=== PATIENT | female | born 1945 | race Caucasian/White ===

== ENCOUNTER → 2016-10-20 | Outpatient (CLI) | payer MEDICARE, OTHER ==
--- NOTE | 2016-10-20 19:41 | Diagnostic Imaging Report ---
EXAMINATION: Bilateral breast ultrasound. INDICATION: Fibrocystic change. Lumpiness in the breasts. FINDINGS: The four quadrants and retroareolar region were scanned, bilaterally, with no underlying lesion seen. IMPRESSION: Negative study. Clinical followup of the palpable area recommended. ACR BI-RADS Category 1: Negative. Result letter will be mailed to the patient. Note: At least 10% of breast cancer is not imaged by mammography. Dictated by: Dictated on workstation # [id number]
--- NOTE | 2016-10-20 19:42 | Diagnostic Imaging Report ---
INDICATION: Bilateral diagnostic mammogram with tomography. The current study was also evaluated with a Computer Aided Detection (CAD) system. COMPARISON: 02/27/15. FINDINGS: The breasts are composed of heterogeneously dense parenchyma which may decrease mammographic sensitivity. There are benign-appearing calcifications seen. There is no definite underlying mass, architectural distortion or suspicious calcification. Benign-appearing calcifications are seen. IMPRESSION: Dense breast parenchyma with no definitive underlying lesion. Ultrasound evaluation pending. ACR BI-RADS Category 0: Incomplete. (Needs additional imaging evaluation). Result letter will be mailed to the patient. Note: At least 10% of breast cancer is not imaged by mammography. Dictated by: Dictated on workstation # [id number]
== END ==
LOC: RAD 08:04
DX: N60.19 Diffuse cystic mastopathy of unspecified breast (principal)
CPT/HCPCS: 77066

== ENCOUNTER 2017-12-14 09:46 | Outpatient (RCR) | payer MEDICARE, OTHER | END 2017-12-20 10:28 | disposition home or self-care (01) | PROVIDERS: ATTEND Internal Medicine | DX: M54.16 Radiculopathy, lumbar region (principal) ==

== ENCOUNTER 2018-01-22 10:00 | Outpatient (RCR) | payer MEDICARE, OTHER | END 2018-02-19 11:40 | disposition home or self-care (01) | PROVIDERS: ATTEND Internal Medicine | DX: M54.16 Radiculopathy, lumbar region (principal) ==

== ENCOUNTER 2018-06-06 11:46 | Outpatient (CLI) | payer MEDICARE, OTHER | END 2018-06-06 12:15 | disposition home or self-care (01) | LOC: SLEEP 11:46 | PROVIDERS: ATTEND Nurse Practitioner Family | DX: G47.10 Hypersomnia, unspecified (principal); J30.2 Other seasonal allergic rhinitis ==

== ENCOUNTER 2018-07-15 13:29 | Emergency (ER) | payer MEDICARE, OTHER ==
[~2018-07-15] VITALS: Ht 160 cm; Wt 60.8 kg
--- NOTE | 2018-07-15 14:30 | ED EENT ---
History of Present Illness General Chief Complaint: Eye Problems Stated Complaint: BLURRED VISION Source: patient Exam Limitations: no limitations History of Present Illness Date Seen by Provider: Jul 15, 2018 Time Seen by Provider: 14:00 Initial Comments 73-year-old female who presents to the emergency room with complaints of blurred vision in the left eye and seeing black spots out of her left eye. She denies pain or recent trauma to the left eye. Reports symptoms started yesterday. Timing/Duration: yesterday Location: eye (L) Prearrival Treatment: no prearrival treatment Associated Symptoms: denies symptoms Allergies and Home Medications Patient Home Medication List Home Medication List Reviewed: Yes Review of Systems Review of Systems Constitutional: see HPI; No chills, No fever Eyes: See HPI, Blurred Vision, Vision Changes All Other Systems Reviewed Negative Unless Noted: Yes Past Frkhqsr-Imfqvz-Uhqlwr Hx Past Med/Social Hx: Reviewed Nursing Past Med/Soc Hx Patient Social History Recent Foreign Travel: No Contact w/Someone Who Travel: No Recent Hopitalizations: No Seasonal Allergies Seasonal Allergies: No Past Medical History Surgeries: Yes Cardiac, Coronary Stent Respiratory: No Cardiac: Yes Hypertension Neurological: No Genitourinary: No Gastrointestinal: Yes (RECTAL FISSURE) Musculoskeletal: No Endocrine: No HEENT: No Cancer: No Psychosocial: No Integumentary: No Family Medical History Reviewed Nursing Family Hx Visual Acuity : Eye Location: Bilaterally Vision Acuity Degree: 20/30 Physical Exam Vital Signs Vital Signs - First Documented 07/15/18 13:33 Temp 98.2 Pulse 86 Resp 20 B/P (MAP) 148/84 (105) Pulse Ox 98 O2 Delivery Room Air Height, Weight, BMI Height: '" Weight: lbs. oz. kg; BMI Method: General Appearance: WD/WN, no apparent distress Eyes: bilateral eye normal inspection, bilateral eye PERRL, bilateral eye EOMI Cardiovascular: normal peripheral pulses, regular rate, rhythm, no edema, no gallop, no JVD, no murmur Respiratory: chest non-tender, lungs clear, normal breath sounds, no respiratory distress, no accessory muscle use Neurologic/Psychiatric: alert, normal mood/affect, oriented x 3 Skin: normal color, warm/dry Progress/Results/Core Measures Progress Progress Note : Time: 15:15 Progress Note I have seen and evaluated the patient. I have discussed the case with Dr. Meng at this time and he recommends having the patient come to his office at 1530 for further evaluation. The patient agrees with plan of care, plans for discharge, return precautions were given. Departure Impression Primary Impression: Visual disturbance Additional Impression: possible detached retina Disposition: HOME, SELF-CARE Condition: Stable/Unchanged Departure-Patient Inst. Decision time for Depature: 14:27 Referrals: GIO SCHREIBER MD (PCP/Family) Primary Care Physician Patient Instructions: Detached Retina Add. Discharge Instructions: Go to Dr. Morelos's Office at 3:[address] Meng for further evaluation of your blurred vision. Return back to the emergency room for worsening symptoms or concerns as needed. All discharge instructions reviewed with patient and/or family. Voiced understanding. ROSS CONDE Jul 15, 2018 14:30
[2018-07-15 14:40] VITALS: BP 148/84
== END 2018-07-15 14:46 | disposition home or self-care (01) ==
LOC: ER 13:29 → EDUNIT# 13:29 → ER 14:46
DX: H53.8 Other visual disturbances (principal); I10 Essential (primary) hypertension; Z95.5 Presence of coronary angioplasty implant and graft
CPT/HCPCS: 99282

== ENCOUNTER → 2018-08-31 | Outpatient (CLI) | payer MEDICARE, OTHER ==
--- NOTE | 2018-08-31 12:18 | Diagnostic Imaging Report ---
EXAMINATION: Digital mammogram bilateral screening. The current study was also evaluated with a Computer Aided Detection (CAD) system. 3-D tomosynthesis was also performed and reviewed. INDICATION: Screening. This study was compared to the prior exams of 10/20/2016 and 02/27/2015. At this time, there are no current complaints. FINDINGS: The fibroglandular tissue in both breasts is heterogeneously dense. This does limit the sensitivity of this exam. Overall, there does not appear to have been any significant change when compared to the prior study. No primary or secondary sign of malignancy is noted. 3D tomographic images fail to show any sign of malignancy. IMPRESSION: There is no radiographic evidence for malignancy. ACR BI-RADS Category 1: Negative. Result letter will be mailed to the patient. Note: At least 10% of breast cancer is not imaged by mammography. Dictated by: Dictated on workstation # [id number]
== END ==
LOC: RAD 09:55
PROVIDERS: ATTEND Obstetrics & Gynecology
DX: Z12.31 Encounter for screening mammogram for malignant neoplasm of breast (principal)
CPT/HCPCS: 77067

== ENCOUNTER 2019-05-17 07:12 | Day surgery (SDC) | payer MEDICARE, OTHER ==
[~2019-05-17] VITALS: Ht 160 cm; Wt 62.0 kg
[2019-05-17] VITALS (10 sets, daily range): BP systolic 133–176; BP diastolic 80–100
[~2019-05-17 07:12] MED LIST: HEParin (CATH LAB) 2,000 ML IV ONE; LIDOCAINE 1% INJ 20 ML 20 ML VIAL ONE; NS IV 1000 ML 1,000 ML ONE
[2019-05-17] MEDS ORDERED: NS IV 1000 ML 1,000 ML IV SCH ×2 (07:30→09:02)
[2019-05-17 07:50] LABS: HEMOGLOBIN 12.3 G/DL (11.5-16.0); MEAN PLATELET VOLUME 8.9 FL (7.4-10.4); RED CELL DISTRIBUTION WIDTH 13.5 % (10.0-14.5); WHITE BLOOD COUNT 5.8 10^3/uL (4.3-11.0)
[2019-05-17] MEDS ORDERED: MELO7.5T46 PO (07:54)
[2019-05-17] MEDS ORDERED: THYR30TA2 PO (07:54)
[2019-05-17] MEDS ORDERED: OMEP20CA18 PO (07:54)
[2019-05-17] MEDS ORDERED: ASPI-983 PO (07:54)
[2019-05-17] MEDS ORDERED: MIDAZOLAM 5 MG/5 ML (VERSED) VIAL ONE (07:55)
[2019-05-17] MEDS ORDERED: fentaNYL INJECTION 100 MCG/2 ML AMP ONE (07:55)
[2019-05-17 08:08] LABS: PROTHROMBIN TIME PATIENT 13.3 SEC (12.2-14.7)
[2019-05-17 08:16] LABS: ALANINE AMINOTRANSFERASE 17 U/L (0-55); ALBUMIN 4.7 GM/DL (3.2-4.5); ALKALINE PHOSPHATASE 73 U/L (40-136); BILIRUBIN,TOTAL 0.4 MG/DL (0.1-1.0); BUN/CREATININE RATIO 16; CALCIUM 10.3 MG/DL (8.5-10.1); CARBON DIOXIDE 24 MMOL/L (21-32); CHLORIDE 97 MMOL/L (98-107); CHOLESTEROL 231 MG/DL (< 200); CREATININE SERUM 0.97 MG/DL (0.60-1.30); GFR ESTIMATED 56; GLUCOSE 85 MG/DL (70-105); HDL CHOLESTEROL 73 MG/DL (40-60); POTASSIUM 4.5 MMOL/L (3.6-5.0); SODIUM 132 MMOL/L (135-145); TOTAL PROTEIN 7.7 GM/DL (6.4-8.2); TRIGLYCERIDES 71 MG/DL (<150); VLDL CHOLESTEROL 14 MG/DL (5-40)
[2019-05-17] MEDS ORDERED: ADENOSINE 3 MG/1 ML (ADENOSCAN) 30ML VIAL IV ONE (08:23)
[2019-05-17] MEDS ORDERED: HEParin 1000 UNIT/ML (10ML VIAL) FOR BOLUS ONE (08:23)
--- NOTE | 2019-05-17 09:02 | Cardiac Procedure Note-CS/ASA ---
Pre-Procedure Note Pre-Op Procedure Note H&P Reviewed The H&P was reviewed, patient examined and no changes noted. Date H&P Reviewed: May 17, 2019 Time H&P Reviewed: 08:10 Conscious Sedation Pre-Proced Time 08:10 ASA Score 3 For ASA 3 and 4: Consider anesthesia and medical clearance. Also, for patients with a history of failed moderate sedation consider anesthesia. Airway Lungs Heart ASA score ASA 1: a normal healthy patient ASA 2: a patient with a mild systemic disease (mid diabetes, controlled hypertension, obesity ASA 3: a patient with a severe systemic disease that limits activity (angina, COPD, prior Myocardial infarction) ASA 4: a patient with an incapacitating disease that is a constant threat to life (CHF, renal failure) ASA 5: a moribund patient not expected to survive 24 hrs. (ruptured aneurysm) ASA 6: a declared brain- patient whose organs are being harvested. For emergent operations, add the letter E after the classification Mallampati Classification Grade 2 Sedation Plan Analgesia, Amnesia, Plan communicated to team members, Discussed options with patient/fam, Discussed risks with patient/fam The patient is an appropriate candidate to undergo the planned procedure, sedation, and anesthesia. The patient immediately re-assessed prior to indication. SHAHIDA ADAMS MD FACP FAC CCDS May 17, 2019 09:02
[2019-05-17] MEDS ORDERED: PRAV20TA3 PO (09:05)
--- NOTE | 2019-05-17 09:05 | Discharge Inst-Post CATH ---
Discharge Inst-CATH/EP Post Cardiac Cath/EP D/C Inst Follow Up/Plan F/u with Dr Fan in one month ACTIVITY * Go Home directly and rest. * Limit activity of the leg (or wrist if it was used) for 7 days including aerobics, swimming, jogging, bicycling, etc. * Restrict stair-climbing for 7 days if possible, if not, climb up with your non-cath leg, then bring together on the same step. * Avoid lifting, pushing, pulling or excessive movement of the affected extremity for 7 days. * Customary sexual activity may be resumed after 2 days-use caution not to use a position that strains or causes pain to the affected extremity. * No driving for 24 hours. * NO SMOKING. * Avoid straining for bowel movements for 7 days. * Gentle walking on level ground is allowed. * Returning to work will depend on the type of procedure and the results. Your doctor will discuss this with you. CALL YOUR DOCTOR FOR ANY OF THE FOLLOWING: *If bleeding from the puncture site occurs- Apply gentle pressure to site with clean cloth and call your doctor or EMS. * If a knot or lump forms under the skin, increases in size, or causes pain. * If bruising appears to be worsening or moving further down your leg instead of disappearing. * Temperature above 101 F. CARE OF YOUR GROIN INCISION; * Bruising or purple discoloration of the skin near the puncture site is common. * You may shower only, no bathtub bathing for 5 days. Be careful to avoid slipping as your leg may feel stiff. * If a closure device was used on your femoral artery, please see the attached guide regarding care of the device and your leg. * Leave dressing on FOR 24 hours. CARE OF YOUR WRIST INCISION; * Bruising or purple discoloration of the skin near the puncture site is common. * You may shower. * DO NOT submerge wrist. * Leave dressing on FOR 24 hours. SHAHIDA FAN MD [facility] CCDS May 17, 2019 09:05
--- NOTE | 2019-05-17 09:06 | Discharge Inst-Cardiology ---
Discharge Inst-Cardiac Discharge Medications New Medications: Pravastatin Sodium (Pravastatin Sodium) 20 Mg Tablet 20 MG PO HS, #30 TAB 5 Refills Continued Medications: Aspirin (Aspirin EC) 81 Mg Tablet.dr 81 MG PO DAILY, TAB Meloxicam (Meloxicam) 7.5 Mg Tablet 7.5 MG PO DAILY, TAB Omeprazole (Omeprazole) 20 Mg Capsule.dr 20 MG PO DAILY, CAP Thyroid,Pork (Story Thyroid) 30 Mg Tablet 30 MG PO DAILY, TAB SHAHIDA ADAMS MD FACP FAC CCDS May 17, 2019 09:06
[2019-05-17] MEDS ORDERED: PATIENT MAY USE OWN MEDS, ALL PO SCH (09:15)
--- NOTE | 2019-05-17 10:12 | CARDIAC CATHETERIZATION ---
DATE OF SERVICE: 05/17/2019 CARDIAC CATHETERIZATION The patient is a 73-year-old lady, who has a history of coronary artery disease and coronary stenting consisting of a Promus stent in the mid left anterior descending artery (2.75 x 16 mm), placed by Dr. Rubio in [place], [place] on 07/25/2014. Lately, she has had chest discomfort similar to what she had experienced prior to her coronary stenting. Cardiac catheterization was carried out today after having obtained an informed consent. DESCRIPTION OF PROCEDURE: She was brought to the cardiac catheterization laboratory in a fasting state. Right groin was prepared and draped in the usual sterile fashion. Lidocaine 1% for local anesthesia. Modified Seldinger technique was used to advance a 5-Guamanian sheath in the right femoral artery, 5-Guamanian JL4 catheter for left coronary angiography, 5-Guamanian JR4 catheter for right coronary angiography, 5-Guamanian pigtail catheter was used for left heart catheterization and left ventricular angiography. The pigtail catheter was pulled back and removed. Subsequently, fractional flow reserve measurement was performed in the mid left anterior descending. FRACTIONAL FLOW RESERVE MEASUREMENT IN THE MID LEFT ANTERIOR DESCENDING: We exchanged the sheath over a wire for a 6-Guamanian sheath. We gave 4000 units of intravenous heparin. We used a 6-Guamanian JL4 guide catheter to engage the left coronary artery. We advanced a pressure wire across the mid left anterior descending artery. There was a patent stented segment in the left anterior descending, which was followed by a 40% stenosis. Given the patient's symptoms, we felt that we should make sure that this is not hemodynamically significant. We advanced a wire across the lesion. We gave adenosine 140 mcg per kilogram per minute for 2 minutes and 20 seconds. Fractional flow reserve was measured at 0.89, indicating hemodynamic insignificance. Following completion of this procedure, the wire was removed. We carried out angiography to make sure there is no change in coronary status. The guide catheter was removed. We injected contrast through the sheath. Mynx was used to achieve hemostasis. She tolerated the procedure well. HEMODYNAMICS: Left ventricular end-diastolic pressure following coronary angiography was 4 mmHg. There was no significant pressure gradient on pullback across the aortic valve. Ascending aortic pressure was 127/70 with a mean 84 mmHg. CORONARY ANGIOGRAPHY: Left main coronary artery is free of significant disease. Left anterior descending artery has a widely patent stent in its mid portion that was followed by approximately 40% stenosis and fractional flow reserve across that was 0.89, indicating that this is hemodynamically insignificant. The left circumflex artery does not exhibit significant disease. Right coronary artery is dominant and does not exhibit significant disease. LEFT VENTRICULAR ANGIOGRAPHY: Left ventricular angiography was carried out in the right anterior oblique projection. Global left ventricular systolic function normal. No regional wall motion abnormalities are seen. Left ventricular ejection fraction is 65 to 70%. HEMODYNAMICS: Left ventricular end-diastolic pressure following coronary angiography was 4 mmHg. There was no significant pressure gradient on pullback across the aortic valve. Ascending aortic pressure was 127/70 with a mean 84 mmHg. CONCLUSIONS: 1. Mild coronary artery disease consisting of approximately 40% stenosis in the mid left anterior descending, which is hemodynamically insignificant (by fractional flow reserve measurement). There is a patent stent in the mid left anterior descending that is known to be Promus 2.75 x 15 mm. The rest of the coronaries do not exhibit significant disease. 2. Low normal left ventricular end-diastolic pressure. 3. Normal global left ventricular systolic function with ejection fraction of 65 to 70%. DISCUSSION AND RECOMMENDATIONS: Based on results of the study, chest discomfort does not appear to be of coronary origin. Continuing risk factor modification and conservative management for coronary artery disease appears appropriate. Outpatient followup is advised. Job ID: [id number] DocumentID: [id number] Dictated Date: 05/17/2019 08:58:27 Healthcare Or Medical Date: 05/17/2019 10:12:02 Dictated By: SHAHIDA ADAMS MD, MA, FACP, FACC, MTDD
== END 2019-05-17 13:20 | disposition home or self-care (01) ==
LOC: CATH 07:12 → SDC 09:15 → CATH 13:20
PROVIDERS: ATTEND Internal Medicine Cardiovascular Disease
DX: I25.10 Atherosclerotic heart disease of native coronary artery without angina pectoris (principal); J30.9 Allergic rhinitis, unspecified; G47.10 Hypersomnia, unspecified; G47.33 Obstructive sleep apnea (adult) (pediatric); E78.5 Hyperlipidemia, unspecified; M54.5 Low back pain; G89.29 Other chronic pain; Z88.2 Allergy status to sulfonamides; Z79.82 Long term (current) use of aspirin; Z79.899 Other long term (current) drug therapy; Z82.49 Family history of ischemic heart disease and other diseases of the circulatory system
CPT/HCPCS: 36415; 36430; 80053; 80061; 85027; 85610; 85730; 87081; 93458

== ENCOUNTER → 2020-02-04 | Outpatient (CLI) | payer MEDICARE, OTHER ==
[~2020-02-04] MED LIST changes: +ASPI-1238 PO; -HEParin (CATH LAB) 2,000 ML IV ONE; -LIDOCAINE 1% INJ 20 ML 20 ML VIAL ONE; +MELO7.5T46 PO; -NS IV 1000 ML 1,000 ML ONE; +OMEP20CA18 PO; +PRAV20TA3 PO; +THYR30TA2 PO
--- NOTE | 2020-02-04 13:26 | Diagnostic Imaging Report ---
INDICATION: Routine screening. COMPARISON: 08/31/2018 and 10/20/2016. TECHNIQUE: 2D and 3D bilateral screening mammography was performed with CAD. FINDINGS: Both breasts remain heterogeneously dense, limiting the sensitivity of mammography. The parenchymal pattern is stable. No mass or malignant appearing microcalcifications are seen. The axillae are unremarkable. IMPRESSION: No mammographic features suspicious for malignancy are identified. ACR BI-RADS Category 1: Negative. Result letter will be mailed to the patient. Note: At least 10% of breast cancer is not imaged by mammography. Dictated by: Dictated on workstation # [id number]
== END ==
LOC: RAD 09:34
DX: Z12.31 Encounter for screening mammogram for malignant neoplasm of breast (principal)
CPT/HCPCS: 77063; 77067

== ENCOUNTER → 2020-02-04 | Outpatient (CLI) | payer MEDICARE, OTHER | LOC: CARD 10:00 | PROVIDERS: ATTEND Internal Medicine Cardiovascular Disease | DX: I25.10 Atherosclerotic heart disease of native coronary artery without angina pectoris (principal); I65.23 Occlusion and stenosis of bilateral carotid arteries; I35.8 Other nonrheumatic aortic valve disorders; G47.33 Obstructive sleep apnea (adult) (pediatric) | CPT/HCPCS: 93306 ==

== ENCOUNTER → 2021-11-09 | Outpatient (CLI) | payer MEDICARE, OTHER ==
--- NOTE | 2021-11-09 17:29 | Diagnostic Imaging Report ---
INDICATION: Postmenopausal state COMPARISON: None available FINDINGS: AP Spine L1-L4: [BMD (g/cm2): 0.942] [T-Score: -2.1] [Z-Score: -0.1] [BMD Previous: NA] [BMD % Change: NA] LT Hip Neck: [BMD (g/cm2): 0.751] [T-Score: -2.1] [Z-Score: 0.1] LT Hip Total: [BMD (g/cm2):0.773] [T-Score:-1.9] [Z-Score: 0.2] [BMD Previous: NA] [BMD % Change: NA] RT Hip Neck: [BMD (g/cm2):0.731] [T-Score:-2.2] [Z-Score:0.0] RT Hip Total: [BMD (g/cm2):0.731] [T-score:-2.2] [Z-Score:-0.2] [BMD Previous:NA] [BMD % Change:NA] *Indicates significant change from prior examination based on 95% confidence level. World Health Organization criteria for BMD interpretation classify patients as Normal (T-score at or above -1.0), Osteopenic (T-score between -1.0 and -2.5) or Osteoporotic (T-score at or below -2.5). LIMITATIONS AND MODIFICATION: None. FRACTURE RISK (FRAX SCORE): The ten year probability of (%): Major Osteoporotic Fracture: [15.1] Hip Fracture: [4.7] IMPRESSION: 1. Osteopenia (Low bone mass). 2. Baseline examination. 3. See below National Osteoporosis Foundation guidelines on when to potentially initiate pharmacologic therapy. Based on the National Osteoporosis Foundation Guidelines, pharmacologic treatment should be initiated in any of the following, unless clinical conditions suggest otherwise: * Any patient with prior fragility fracture of the hip or vertebrae. A spine fracture indicates 5X risk for subsequent spine fracture and 2X risk for subsequent hip fracture. * Osteoporosis (T-score <-2.5). * Postmenopausal women and men age 50 and older with low bone mass/osteopenia (T-score between -1.0 and -2.5) by DXA and 10-year major osteoporotic fracture greater than 20% or a 10-year probability of hip fracture greater than 3%. These fracture risks are supplied above in the FRAX score, if applicable. * Clinician judgement and/or patient preferences may indicate treatment for people with 10-year fracture probabilities above or below these levels. Dictated by: Dictated on workstation # [id number]
== END ==
LOC: RAD 13:56
PROVIDERS: ATTEND Internal Medicine
DX: M85.80 Other specified disorders of bone density and structure, unspecified site (principal); Z78.0 Asymptomatic menopausal state
CPT/HCPCS: 77080

== ENCOUNTER → 2021-11-09 | Outpatient (CLI) | payer MEDICARE, OTHER ==
--- NOTE | 2021-11-09 16:17 | Diagnostic Imaging Report ---
INDICATION: Routine screening. Comparison is made with prior mammogram from 02/04/2020 and 08/31/2018. 2-D and 3-D bilateral screening mammography was performed with CAD. Both breasts are heterogeneously dense, limiting the sensitivity of mammography. The parenchymal pattern is stable. No mass or malignant-appearing microcalcifications are seen. Axillae are unremarkable. IMPRESSION: No mammographic features suspicious for malignancy are identified. ACR BI-RADS Category 2: Benign findings. Result letter will be mailed to the patient. Note: At least 10% of breast cancer is not imaged by mammography. BI-RADS Category 2 Dictated by: Dictated on workstation # [id number]
== END ==
LOC: RAD 14:15
PROVIDERS: ATTEND Obstetrics & Gynecology
DX: Z12.31 Encounter for screening mammogram for malignant neoplasm of breast (principal)
CPT/HCPCS: 77063; 77067